=== PATIENT | male | born 1985 | race Caucasian/White ===

== ENCOUNTER 2018-12-27 10:08 | Observation (INO) ==
[2018-12-27] MEDS ORDERED: SODIUM CHLORIDE 0.9% 1,000 ML IV STA (10:33)
[2018-12-27 11:29] LABS: INR 0.8; PT Patient Result 9.2 SECS
[2018-12-27 11:43] LABS: Alanine Aminotransferase 96 U/L (16-61); Albumin 3.5 G/DL (3.4-5.0); Alkaline Phosphatase 101 U/L (45-117); Aspartate Amino Transferase 39 U/L (0-37); Bilirubin,Total < 0.39 MG/DL (0.2-1.0); Blood Urea Nitrogen 13 MG/DL (7-18); Calcium 8.1 MG/DL (8.5-10.1); Glucose 102 MG/DL (74-106); Osmolality,Calculated 280.3 MOS/KG (273-304); Potassium 3.4 MMOL/L (3.5-5.1); Sodium 141 MMOL/L (136-145); Total Protein 7.3 G/DL (6.4-8.3)
[2018-12-27 12:02] LABS: Basophils % 0.5 % (0.0-0.8); Eosinophils # 0.3 10*3/uL (0.0-0.87); Hematocrit 35.2 VOL% (42.0-52.0); Hemoglobin 10.1 GM/DL (14.0-18.0); Immature Granulocytes % 1.2 %; Immature Granulocytes Absolute 0.09 #; Lymphocytes # 1.9 10*3/uL (1.4-4.0); Lymphocytes % 24.6 % (21.2-54.2); Mean Corpuscular HGB Conc 28.7 GM/DL (32-36); Mean Corpuscular Hemoglobin 22 PG (27-34); Mean Corpuscular Volume 75.5 FL (87-102); Mean Platelet Volume 10.7 FL (9.6-12.0); Monocytes # 0.9 10*3/uL (0.11-0.8); Neutrophils # 4.6 10*3/uL (1.4-7.4); Neutrophils % 58.7 % (38.7-73.9); Platelet Count 314 T/CUMM (130-400); Red Blood Count 4.66 MC/CUMM (3.8-5.5); Red Cell Distribution Width 17.8 % (9.3-17.3); White Blood Count 7.8 T/CUMM (4-12)
[2018-12-27 12:33] LABS: Apearance,Urine CLEAR (Clear); Bilirubin,Urine Negative (Negative); Blood, Urine Negative (Negative); Glucose,Urine (UA) Negative (Negative); Ketones,Urine Negative (Negative); Mucus,Urine Occasional /LPF (Occasional); Nitrite,Urine Negative (Negative); Protein,Urine Negative; Urine Color Yellow (Yellow); Urine Specific Gravity 1.017 (1.001-1.035); Urine Urobilinogen < 2.0 EU/DL (0.2-1.0); WBC,Urine <1 /HPF (0-6)
[2018-12-27 12:38] LABS: Barbiturates Screen,Urine Negative (Negative); Benzodiazepines Screen,Urine Negative (Negative); Cannabinoid Screen,Urine Negative (Negative); Opiate Screen,Urine Negative (Negative); Phencyclidine Screen,Urine Negative (Negative)
[2018-12-27] MEDS ORDERED: ALPRAZOLAM 2 MG PO PRN (13:30)
[2018-12-27] MEDS ORDERED: NON-FORMULARY MEDICATION (Albuterol Sulfate [Ventolin Hfa] 2 PUFF) INH PRN (13:30)
[2018-12-27] MEDS ORDERED: PROMETHAZINE 25 MG TABLET PO PRN (13:30)
[2018-12-27] MEDS ORDERED: ZALEPLON 5 MG CAPSULE PO PRN (13:37)
[2018-12-27] MEDS ORDERED: traZODone 50 MG TABLET PO PRN (13:37)
[2018-12-27] MEDS ORDERED: guaiFENesin/DM ER 600-30 MG TABLET PO PRN (13:37)
[2018-12-27] MEDS ORDERED: DEXTROSE 50% 25 GM/50 ML SYRINGE IV PRN (13:54)
[2018-12-27] MEDS ORDERED: GLUCAGON 1 MG VIAL IM PRN (13:54)
[2018-12-27] MEDS ORDERED: ALBUTEROL 2.5 MG/3 ML NEB RESP TX PRN (13:55)
[2018-12-27 14:05] LABS: Risk Ratio 5.73; VLDL CHOLESTEROL 89.6 MG/DL
[2018-12-27] MEDS: HEPARIN 5,000 UNIT/1 ML VIAL SUBCUT SCH ×2 (14:32→21:11)
[2018-12-27] MEDS: GABAPENTIN 600 MG TABLET PO SCH ×2 (14:32→21:11)
[2018-12-27] MEDS ORDERED: PREGABALIN 75 MG CAPSULE PO SCH (15:00)
[2018-12-27 15:48] LABS: Hypochromasia 1+
[2018-12-27 15:49] LABS: Microcytosis 1+; Ovalocytes Few; Platelet Estimate Normal; Polychromasia Slight
[2018-12-27 15:50] LABS: Anisocytosis Slight
[2018-12-27] MEDS: INSULIN REGULAR 100 UNIT/ML SUBCUT SCH ×2 (16:51→21:24)
[2018-12-27] MEDS ORDERED: NON-FORMULARY MEDICATION (Gabapentin [Neurontin] 800 MG) PO SCH (17:00)
[2018-12-27] MEDS: ALPRAZolam 0.5 MG TABLET PO PRN (17:03)
[2018-12-27] MEDS ORDERED: DULoxetine 30 MG CAPSULE PO SCH (21:00)
[2018-12-27] MEDS ORDERED: DICLOFENAC SODIUM 75 MG TABLET PO SCH (21:00)
[2018-12-27] MEDS ORDERED: NON-FORMULARY MEDICATION (Zolpidem Tartrate [Ambien] 10 MG) PO SCH (21:00)
[2018-12-27] MEDS: hydrALAZINE 25 MG TABLET PO SCH (21:10)
[2018-12-27] MEDS: cloNIDine 0.1 MG TABLET PO SCH (21:10)
[2018-12-27] MEDS: DOCUSATE SODIUM 100 MG CAPSULE PO SCH (21:10)
[2018-12-27] MEDS: BACLOFEN 10 MG TABLET PO SCH (21:11)
[2018-12-27] MEDS: METOPROLOL SUCCINATE XL 50 MG TABLET PO SCH (21:11)
[2018-12-27] MEDS: PREGABALIN 75 MG CAPSULE PO SCH (21:11)
[2018-12-28 05:16] LABS: Albumin 3.1 G/DL (3.4-5.0); Bilirubin,Total 0.7 MG/DL (0.2-1.0); Calcium 8.2 MG/DL (8.5-10.1); Osmolality,Calculated 281.1 MOS/KG (273-304); Potassium 3.4 MMOL/L (3.5-5.1); Total Protein 6.2 G/DL (6.4-8.3)
[2018-12-28 05:59] LABS: Basophils # 0.1 10*3/uL (0.0-0.2); Basophils % 0.8 % (0.0-0.8); Eosinophils # 0.2 10*3/uL (0.0-0.87); Eosinophils % 3.9 % (0.00-10.9); Hematocrit 29.7 VOL% (42.0-52.0); Hemoglobin 8.2 GM/DL (14.0-18.0); Immature Granulocytes % 0.7 %; Immature Granulocytes Absolute 0.04 #; Lymphocytes # 2.1 10*3/uL (1.4-4.0); Lymphocytes % 35.3 % (21.2-54.2); Mean Corpuscular HGB Conc 27.6 GM/DL (32-36); Mean Corpuscular Hemoglobin 21 PG (27-34); Mean Corpuscular Volume 75.2 FL (87-102); Mean Platelet Volume 10.9 FL (9.6-12.0); Monocytes # 0.6 10*3/uL (0.11-0.8); Monocytes % 10.2 % (1.7-12.7); Neutrophils # 2.9 10*3/uL (1.4-7.4); Neutrophils % 49.1 % (38.7-73.9); Platelet Count 254 T/CUMM (130-400); Red Blood Count 3.95 MC/CUMM (3.8-5.5); Red Cell Distribution Width 17.4 % (9.3-17.3); White Blood Count 5.9 T/CUMM (4-12)
[2018-12-28 06:05] LABS: Hypochromasia 1+
[2018-12-28 06:06] LABS: Ovalocytes Few; Platelet Estimate Normal
[2018-12-28 06:07] LABS: Microcytosis 2+
[2018-12-28] MEDS: HEPARIN 5,000 UNIT/1 ML VIAL SUBCUT SCH ×2 (06:16→14:46)
[2018-12-28] MEDS: GABAPENTIN 600 MG TABLET PO SCH ×2 (06:16→14:46)
[2018-12-28] MEDS: METOPROLOL SUCCINATE XL 50 MG TABLET PO SCH (08:57)
[2018-12-28] MEDS: cloNIDine 0.1 MG TABLET PO SCH (08:57)
[2018-12-28] MEDS: BACLOFEN 10 MG TABLET PO SCH (08:57)
[2018-12-28] MEDS: hydrALAZINE 25 MG TABLET PO SCH (08:58)
[2018-12-28] MEDS: PREGABALIN 75 MG CAPSULE PO SCH (08:58)
[2018-12-28] MEDS: INSULIN REGULAR 100 UNIT/ML SUBCUT SCH ×3 (08:59→15:59)
[2018-12-28] MEDS: DOCUSATE SODIUM 100 MG CAPSULE PO SCH (08:59)
[2018-12-28] MEDS ORDERED: ATORVASTATIN 40 MG TABLET PO SCH (09:00)
[2018-12-28] MEDS ORDERED: NON-FORMULARY MEDICATION (Omeprazole [Prilosec] 20 MG) PO SCH (09:00)
[2018-12-28] MEDS ORDERED: hydroCHLOROthiazide 25 MG TABLET PO SCH (09:00)
[2018-12-28] MEDS ORDERED: OMEGA 3 ACID ETHYL ESTERS 1 GM CAPSULE PO SCH (09:00)
[2018-12-28] MEDS ORDERED: amLODIPine 10 MG TABLET PO SCH (09:00)
[2018-12-28] MEDS ORDERED: MELOXICAM 7.5 MG TABLET PO SCH (09:00)
[2018-12-28] MEDS ORDERED: PANTOPRAZOLE 40 MG TABLET PO SCH (09:00)
[2018-12-28] MEDS ORDERED: ATOMOXETINE HCL 10 MG PO SCH (09:00)
[2018-12-28] MEDS ORDERED: LOSARTAN 50 MG TABLET PO SCH (09:00)
[2018-12-28] MEDS ORDERED: TERIFLUNOMIDE 14 MG PO SCH (09:00)
[2018-12-28] MEDS: ALPRAZolam 0.5 MG TABLET PO PRN (09:15)
[2018-12-28] MEDS ORDERED: IRON SUCROSE 300 MG in SODIUM CHLORIDE 0.9% 100 ML IV ONE (16:00)
[2018-12-28 16:20] VITALS: BP 120/92
== END 2018-12-28 18:42 | disposition home or self-care (01) ==
LOC: EDUNIT# → EDBD → N.ED 10:08 → N.EDINP 10:08 → N.4E 13:52
PROVIDERS: ADMIT Internal Medicine; ATTEND Internal Medicine

== ENCOUNTER 2020-11-14 16:27 | Inpatient (IN) ==
[2020-11-14] MEDS ORDERED: CLINDAMYCIN INJ 600 MG in PREMIX 1 EACH IV STA (18:39)
[2020-11-14 19:32] LABS: Basophils # 0.1 10*3/uL (0.0-0.2); Basophils % 0.4 % (0.0-0.8); Eosinophils # 0.2 10*3/uL (0.0-0.87); Eosinophils % 1.4 % (0.00-10.9); Hematocrit 38.7 VOL% (42.0-52.0); Hemoglobin 12.2 GM/DL (14.0-18.0); Immature Granulocytes % 0.5 %; Immature Granulocytes Absolute 0.07 #; Lymphocytes # 2.8 10*3/uL (1.4-4.0); Lymphocytes % 20.1 % (21.2-54.2); Mean Corpuscular HGB Conc 31.5 GM/DL (32-36); Mean Corpuscular Volume 85.1 FL (87-102); Monocytes % 11.4 % (1.7-12.7); Neutrophils % 66.2 % (38.7-73.9); Platelet Count 234 T/CUMM (130-400); Red Blood Count 4.55 MC/CUMM (3.8-5.5); Red Cell Distribution Width 14.6 % (9.3-17.3); White Blood Count 13.9 T/CUMM (4-12)
[2020-11-14 19:52] LABS: Albumin 3.2 G/DL (3.4-5.0); Bilirubin,Total 0.5 MG/DL (0.2-1.0); Osmolality,Calculated 271.8 MOS/KG (273-304); Potassium 3.4 MMOL/L (3.5-5.1); Total Protein 7.1 G/DL (6.4-8.3)
[2020-11-14] MEDS ORDERED: VANCOMYCIN INJ 1,000 MG in SODIUM CHLORIDE 0.9% 250 ML IV STA (21:34)
[2020-11-14] MEDS ORDERED: GLUCAGON 1 MG VIAL IM PRN ×2 (21:38)
[2020-11-14] MEDS ORDERED: DEXTROSE 50% 25 GM/50 ML VIAL IV PRN ×2 (21:38)
[2020-11-14] MEDS ORDERED: ZALEPLON 5 MG CAPSULE PO PRN (21:38)
[2020-11-14] MEDS ORDERED: ALUMINUM/MAGNES/SIMETH MAX STR 30 ML UDCUP PO PRN (21:38)
[2020-11-14] MEDS ORDERED: hydrALAZINE 20 MG/1 ML VIAL IV PRN (21:38)
[2020-11-14] MEDS ORDERED: guaiFENesin/DM ER 600-30 MG TABLET PO PRN (21:38)
[2020-11-14] MEDS ORDERED: NICOTINE 21 MG/24 HR PATCH TRANSDERM PRN (21:38)
[2020-11-14] MEDS ORDERED: diphenhydrAMINE CAP 25 MG CAPSULE PO PRN (21:38)
[2020-11-14] MEDS ORDERED: SIMETHICONE CHEW 125 MG TABLET PO PRN (21:38)
[2020-11-14] MEDS ORDERED: NON-FORMULARY MEDICATION (Albuterol Sulfate [Ventolin Hfa] 90 MCG/PUFF HFA aerosol inhaler INH PRN (21:43)
[2020-11-14] MEDS ORDERED: cloNIDine 0.1 MG TABLET PO PRN (21:43)
[2020-11-14] MEDS ORDERED: ALPRAZolam 0.5 MG TABLET PO PRN (21:43)
[2020-11-14] MEDS ORDERED: PROMETHAZINE 25 MG TABLET PO PRN (21:43)
[2020-11-15] MEDS ORDERED: BACLOFEN 10 MG TABLET PO ONE (00:24)
[2020-11-15] MEDS ORDERED: ALBUTEROL 2.5 MG/3 ML NEB RESP TX PRN (00:29)
[2020-11-15] MEDS ORDERED: CLINDAMYCIN INJ 600 MG in PREMIX 1 EACH IV SCH (04:00)
[2020-11-15 06:47] LABS: Basophils # 0.1 10*3/uL (0.0-0.2); Basophils % 0.5 % (0.0-0.8); Eosinophils # 0.2 10*3/uL (0.0-0.87); Eosinophils % 1.3 % (0.00-10.9); Hematocrit 37.7 VOL% (42.0-52.0); Hemoglobin 11.9 GM/DL (14.0-18.0); Immature Granulocytes % 0.4 %; Immature Granulocytes Absolute 0.06 #; Lymphocytes # 2.2 10*3/uL (1.4-4.0); Lymphocytes % 16.5 % (21.2-54.2); Mean Corpuscular HGB Conc 31.6 GM/DL (32-36); Mean Corpuscular Volume 85.7 FL (87-102); Mean Platelet Volume 10.9 FL (9.6-12.0); Monocytes % 9.4 % (1.7-12.7); Neutrophils % 71.9 % (38.7-73.9); Platelet Count 223 T/CUMM (130-400); Red Cell Distribution Width 14.5 % (9.3-17.3); White Blood Count 13.5 T/CUMM (4-12)
[2020-11-15 06:56] LABS: Calcium 8.1 MG/DL (8.5-10.1); Osmolality,Calculated 278.4 MOS/KG (273-304); Potassium 2.9 MMOL/L (3.5-5.1)
[2020-11-15] MEDS: INSULIN LISPRO 100 UNIT/ML SUBCUT SCH ×4 (08:57→21:08)
[2020-11-15] MEDS: ENOXAPARIN 40 MG/0.4 ML SYRINGE SUBCUT SCH (09:41)
[2020-11-15] MEDS: METOPROLOL SUCCINATE XL 50 MG TABLET PO SCH ×2 (09:42→21:08)
[2020-11-15] MEDS: ASPIRIN EC 325 MG TABLET PO SCH (09:42)
[2020-11-15] MEDS: hydroCHLOROthiazide 25 MG TABLET PO SCH (09:42)
[2020-11-15] MEDS: LOSARTAN 50 MG TABLET PO SCH ×2 (09:42→21:08)
[2020-11-15] MEDS: POTASSIUM CHLORIDE 20 MEQ TABLET PO PRN ×4 (09:42→18:30)
[2020-11-15] MEDS: BACLOFEN 10 MG TABLET PO SCH ×3 (09:42→21:08)
[2020-11-15] MEDS: PANTOPRAZOLE 40 MG TABLET PO SCH (09:42)
[2020-11-15] MEDS: BISACODYL 5 MG TABLET PO SCH (09:42)
[2020-11-15] MEDS: FERROUS SULFATE 325 MG TABLET PO SCH (09:42)
[2020-11-15] MEDS: amLODIPine 10 MG TABLET PO SCH (09:42)
[2020-11-15] MEDS: PIPERACILLIN/TAZOBACTAM 3,375 MG in SODIUM CHLORIDE 0.9% 100 ML IV SCH ×2 (09:43→16:45)
[2020-11-15] MEDS: VANCOMYCIN INJ 1,750 MG in SODIUM CHLORIDE 0.9% 500 ML IV SCH ×2 (13:45→23:38)
[2020-11-16 00:56] LABS: Basophils % 0.3 % (0.0-0.8); Eosinophils # 0.2 10*3/uL (0.0-0.87); Eosinophils % 1.7 % (0.00-10.9); Hematocrit 36.3 VOL% (42.0-52.0); Hemoglobin 11.2 GM/DL (14.0-18.0); Immature Granulocytes % 0.3 %; Immature Granulocytes Absolute 0.03 #; Lymphocytes # 2.2 10*3/uL (1.4-4.0); Lymphocytes % 22.4 % (21.2-54.2); Mean Corpuscular HGB Conc 30.9 GM/DL (32-36); Mean Corpuscular Volume 87.5 FL (87-102); Mean Platelet Volume 10.9 FL (9.6-12.0); Neutrophils % 65.3 % (38.7-73.9); Platelet Count 219 T/CUMM (130-400); Red Blood Count 4.15 MC/CUMM (3.8-5.5); Red Cell Distribution Width 14.6 % (9.3-17.3); White Blood Count 9.8 T/CUMM (4-12)
[2020-11-16 01:16] LABS: Calcium 8.4 MG/DL (8.5-10.1); Osmolality,Calculated 280.3 MOS/KG (273-304); Potassium 3.5 MMOL/L (3.5-5.1)
[2020-11-16] MEDS: PIPERACILLIN/TAZOBACTAM 3,375 MG in SODIUM CHLORIDE 0.9% 100 ML IV SCH ×3 (03:00→18:09)
[2020-11-16] MEDS: INSULIN LISPRO 100 UNIT/ML SUBCUT SCH ×4 (09:00→20:57)
[2020-11-16] MEDS: FERROUS SULFATE 325 MG TABLET PO SCH (10:10)
[2020-11-16] MEDS: amLODIPine 10 MG TABLET PO SCH (10:10)
[2020-11-16] MEDS: ASPIRIN EC 325 MG TABLET PO SCH (10:10)
[2020-11-16] MEDS: BACLOFEN 10 MG TABLET PO SCH ×3 (10:10→20:56)
[2020-11-16] MEDS: PANTOPRAZOLE 40 MG TABLET PO SCH (10:10)
[2020-11-16] MEDS: METOPROLOL SUCCINATE XL 50 MG TABLET PO SCH ×2 (10:10→20:56)
[2020-11-16] MEDS: BISACODYL 5 MG TABLET PO SCH (10:10)
[2020-11-16] MEDS: ENOXAPARIN 40 MG/0.4 ML SYRINGE SUBCUT SCH (10:10)
[2020-11-16] MEDS: hydroCHLOROthiazide 25 MG TABLET PO SCH (10:10)
[2020-11-16] MEDS: LOSARTAN 50 MG TABLET PO SCH ×2 (10:11→20:56)
[2020-11-16] MEDS: VANCOMYCIN INJ 1,750 MG in SODIUM CHLORIDE 0.9% 500 ML IV SCH (11:58)
[2020-11-17] MEDS: VANCOMYCIN INJ 1,750 MG in SODIUM CHLORIDE 0.9% 500 ML IV SCH ×2 (00:03→12:01)
[2020-11-17] MEDS: PIPERACILLIN/TAZOBACTAM 3,375 MG in SODIUM CHLORIDE 0.9% 100 ML IV SCH ×3 (03:55→18:30)
[2020-11-17 06:46] LABS: Basophils # 0.1 10*3/uL (0.0-0.2); Basophils % 0.8 % (0.0-0.8); Eosinophils # 0.3 10*3/uL (0.0-0.87); Hematocrit 35.3 VOL% (42.0-52.0); Hemoglobin 10.8 GM/DL (14.0-18.0); Immature Granulocytes % 0.4 %; Immature Granulocytes Absolute 0.03 #; Lymphocytes # 2.5 10*3/uL (1.4-4.0); Mean Corpuscular HGB Conc 30.6 GM/DL (32-36); Mean Corpuscular Volume 88.9 FL (87-102); Mean Platelet Volume 10.7 FL (9.6-12.0); Neutrophils % 52.8 % (38.7-73.9); Platelet Count 256 T/CUMM (130-400); Red Blood Count 3.97 MC/CUMM (3.8-5.5); Red Cell Distribution Width 14.3 % (9.3-17.3); White Blood Count 7.7 T/CUMM (4-12)
[2020-11-17] MEDS: oxyCODONE/ACETAMINOPHEN 5-325 MG TABLET PO PRN (06:47)
[2020-11-17 07:06] LABS: Hypochromasia 1+; Microcytosis 1+; Platelet Estimate Adequate
[2020-11-17 07:12] LABS: Calcium 8.7 MG/DL (8.5-10.1); Potassium 3.3 MMOL/L (3.5-5.1)
[2020-11-17] MEDS: INSULIN LISPRO 100 UNIT/ML SUBCUT SCH ×2 (08:58→11:46)
[2020-11-17] MEDS: ASPIRIN EC 325 MG TABLET PO SCH (10:37)
[2020-11-17] MEDS: BISACODYL 5 MG TABLET PO SCH (10:37)
[2020-11-17] MEDS: PANTOPRAZOLE 40 MG TABLET PO SCH (10:38)
[2020-11-17] MEDS: BACLOFEN 10 MG TABLET PO SCH ×3 (10:38→20:14)
[2020-11-17] MEDS: METOPROLOL SUCCINATE XL 50 MG TABLET PO SCH ×2 (10:38→20:14)
[2020-11-17] MEDS: FERROUS SULFATE 325 MG TABLET PO SCH (10:38)
[2020-11-17] MEDS: LOSARTAN 50 MG TABLET PO SCH ×2 (10:38→20:14)
[2020-11-17] MEDS: amLODIPine 10 MG TABLET PO SCH (10:38)
[2020-11-17] MEDS: hydroCHLOROthiazide 25 MG TABLET PO SCH (10:38)
[2020-11-17] MEDS: ENOXAPARIN 40 MG/0.4 ML SYRINGE SUBCUT SCH (10:39)
[2020-11-17] MEDS: POTASSIUM CHLORIDE 20 MEQ TABLET PO PRN ×3 (12:01→15:51)
[2020-11-18] MEDS: VANCOMYCIN INJ 1,750 MG in SODIUM CHLORIDE 0.9% 500 ML IV SCH ×3 (00:48→23:42)
[2020-11-18] MEDS: PIPERACILLIN/TAZOBACTAM 3,375 MG in SODIUM CHLORIDE 0.9% 100 ML IV SCH ×3 (04:02→18:55)
[2020-11-18 06:23] LABS: Basophils # 0.1 10*3/uL (0.0-0.2); Basophils % 0.7 % (0.0-0.8); Eosinophils # 0.3 10*3/uL (0.0-0.87); Eosinophils % 4.7 % (0.00-10.9); Hematocrit 33.9 VOL% (42.0-52.0); Hemoglobin 10.5 GM/DL (14.0-18.0); Immature Granulocytes % 0.5 %; Immature Granulocytes Absolute 0.04 #; Lymphocytes # 2.4 10*3/uL (1.4-4.0); Lymphocytes % 32.5 % (21.2-54.2); Mean Corpuscular Volume 86.5 FL (87-102); Mean Platelet Volume 10.8 FL (9.6-12.0); Monocytes % 9.5 % (1.7-12.7); Neutrophils % 52.1 % (38.7-73.9); Platelet Count 288 T/CUMM (130-400); Red Blood Count 3.92 MC/CUMM (3.8-5.5); Red Cell Distribution Width 14.3 % (9.3-17.3); White Blood Count 7.3 T/CUMM (4-12)
[2020-11-18] MEDS ORDERED: ceFAZolin 1,000 MG in SYRINGE 1 EACH IV ONE (06:30)
[2020-11-18 06:34] LABS: Calcium 8.6 MG/DL (8.5-10.1); Osmolality,Calculated 278.3 MOS/KG (273-304); Potassium 3.2 MMOL/L (3.5-5.1)
[2020-11-18 07:05] LABS: Hypochromasia 1+
[2020-11-18 07:06] LABS: Microcytosis 1+
[2020-11-18 07:09] LABS: Platelet Estimate Normal
[2020-11-18] MEDS ORDERED: SODIUM CHLORIDE 0.9% 250 ML IV ONE (07:47)
[2020-11-18] MEDS ORDERED: LIDOCAINE 2% 5 ML VIAL ONE (07:47)
[2020-11-18] MEDS ORDERED: propofoL 200 MG/20 ML VIAL IV ONE ×3 (07:47→08:33)
[2020-11-18] MEDS ORDERED: MIDAZOLAM 2 MG/2 ML VIAL ONE ×2 (07:48)
[2020-11-18] MEDS ORDERED: fentaNYL 100 MCG/2 ML VIAL ONE (07:48)
[2020-11-18] MEDS ORDERED: KETAMINE 500 MG/10 ML VIAL ONE (07:48)
[2020-11-18] MEDS ORDERED: LACTATED RINGERS 1,000 ML IV SCH (08:00)
[2020-11-18] MEDS ORDERED: ceFAZolin 1,000 MG VIAL ONE (08:26)
[2020-11-18] MEDS ORDERED: ONDANSETRON 4 MG/2 ML VIAL ONE (08:31)
[2020-11-18] MEDS ORDERED: MEPERIDINE 25 MG/1 ML VIAL IV PRN (08:50)
[2020-11-18] MEDS ORDERED: PROMETHAZINE INJ 25 MG in SODIUM CHLORIDE 0.9% 50 ML IV PRN (08:50)
[2020-11-18] MEDS ORDERED: diphenhydrAMINE 50 MG/1 ML VIAL IV PRN (08:50)
[2020-11-18] MEDS ORDERED: ONDANSETRON 4 MG/2 ML VIAL IV PRN (08:50)
[2020-11-18] MEDS: HYDROmorphone 2 MG/1 ML VIAL IV PRN ×4 (09:05→09:20)
[2020-11-18] MEDS ORDERED: hydrALAZINE 20 MG/1 ML VIAL IV ONE (09:12)
[2020-11-18] MEDS: hydroCHLOROthiazide 25 MG TABLET PO SCH (10:12)
[2020-11-18] MEDS: METOPROLOL SUCCINATE XL 50 MG TABLET PO SCH ×2 (10:12→20:13)
[2020-11-18] MEDS: POTASSIUM CHLORIDE 20 MEQ TABLET PO PRN ×3 (10:12→18:55)
[2020-11-18] MEDS: ASPIRIN EC 325 MG TABLET PO SCH (10:12)
[2020-11-18] MEDS: ENOXAPARIN 40 MG/0.4 ML SYRINGE SUBCUT SCH (10:12)
[2020-11-18] MEDS: amLODIPine 10 MG TABLET PO SCH (10:13)
[2020-11-18] MEDS: LOSARTAN 50 MG TABLET PO SCH ×2 (10:13→20:13)
[2020-11-18] MEDS: PANTOPRAZOLE 40 MG TABLET PO SCH (10:13)
[2020-11-18] MEDS: FERROUS SULFATE 325 MG TABLET PO SCH (10:13)
[2020-11-18] MEDS: BACLOFEN 10 MG TABLET PO SCH ×3 (10:13→20:14)
[2020-11-18] MEDS: BISACODYL 5 MG TABLET PO SCH (10:13)
[2020-11-18] MEDS: oxyCODONE/ACETAMINOPHEN 5-325 MG TABLET PO PRN ×2 (15:30→23:41)
[2020-11-19] MEDS: POTASSIUM CHLORIDE 20 MEQ TABLET PO PRN ×2 (01:41→04:07)
[2020-11-19] MEDS: PIPERACILLIN/TAZOBACTAM 3,375 MG in SODIUM CHLORIDE 0.9% 100 ML IV SCH (02:51)
[2020-11-19] MEDS: ENOXAPARIN 40 MG/0.4 ML SYRINGE SUBCUT SCH (09:16)
[2020-11-19] MEDS: PANTOPRAZOLE 40 MG TABLET PO SCH (09:17)
[2020-11-19] MEDS: hydroCHLOROthiazide 25 MG TABLET PO SCH (09:17)
[2020-11-19] MEDS: METOPROLOL SUCCINATE XL 50 MG TABLET PO SCH (09:17)
[2020-11-19] MEDS: BACLOFEN 10 MG TABLET PO SCH (09:18)
[2020-11-19] MEDS: ASPIRIN EC 325 MG TABLET PO SCH (09:18)
[2020-11-19] MEDS: BISACODYL 5 MG TABLET PO SCH (09:18)
[2020-11-19] MEDS: amLODIPine 10 MG TABLET PO SCH (09:18)
[2020-11-19] MEDS: FERROUS SULFATE 325 MG TABLET PO SCH (09:18)
[2020-11-19] MEDS: LOSARTAN 50 MG TABLET PO SCH (09:18)
[2020-11-19] MEDS: oxyCODONE/ACETAMINOPHEN 5-325 MG TABLET PO PRN (09:47)
[2020-11-19 13:18] VITALS: BP 138/82
== END 2020-11-19 16:05 | disposition home or self-care (01) | DRG 581 ==
LOC: N.ED 16:27 → N.EDINP 16:27 → N.3E 11-15 00:45
PROVIDERS: ADMIT Internal Medicine; ATTEND Internal Medicine